=== PATIENT | male | born 1960 | race Caucasian/White ===

== ENCOUNTER 2018-08-10 07:52 | Emergency (ER) | payer BC, OTHER ==
[2018-08-10 08:50] VITALS: BP 188/104; PULSE 93; TEMP 98.2; BMI 31.9
--- NOTE | 2018-08-10 09:33 | PDOC ---
History of Present Illness - History of Present Illness Initial Comments: 08/10/18 10:31 Patient is a 58 year old male with a significant past medical history of End stage renal disease, who presents to the ED with complaints of left knee swelling that began x8 days ago. Patient reports experiencing sudden onset of left knee edema with associated left knee pain that he states is a 10/10 in intensity at night. He reports going to [facility] where he states he was given gout medication, and rex bandage for knee and discharged. Patient reports waking up the next morning where he states his knee appeared to increased in swelling and have large bruises, prompting him to come into the ED for further evaluation. Denies chest pain, Sob. Denies nausea, vomiting. Denies contact with sick individuals, out of states travelling. Denies diarrhea, constipation. Denies dysuria, hematuria. Denies any other symptoms. Allergies: Penicillin Social history: No alcohol. No illicit drugs.No smoking. Surgical history: Kidney Transplant s/p 2005. PMD: Not on staff <Madhu Eden - Last Filed: 08/10/18 10:31> - General History Source: Patient Exam Limitations: No Limitations <Chen Conner - Last Filed: 08/11/18 11:44> - General Chief Complaint: Edema Stated Complaint: L LEG NUMBNESS Time Seen by Provider: 08/10/18 09:28 Past History <Madhu Eden - Last Filed: 08/10/18 10:31> - Past Medical History COPD: No CHF: No Disorders: Yes (Bilateral Kidney transplant 2005) HTN: Yes - Immunization History Immunization Up to Date: Yes - Suicide/Smoking/Psychosocial Hx Smoking History: Never smoked Have you smoked in the past 12 months: No Information on smoking cessation initiated: No Hx Alcohol Use: No Drug/Substance Use Hx: No Substance Use Type: None <Chen Conner - Last Filed: 08/11/18 11:44> - Past Medical History Allergies/Adverse Reactions: Allergies Allergy/AdvReac Type Severity Reaction Status Date / Time No Known Allergies Allergy Verified 08/10/18 08:47 Home Medications: Ambulatory Orders Hydrocodone/Acetaminophen [Hydrocodone-Acetamin 5-325 mg] 1 each PO HS PRN #8 tablet MDD 1 08/10/18 Hydrocodone/Acetaminophen [Vicodin 5-300 mg Tablet] 1 each PO HS #8 tablet MDD 1 08/10/18 Mycophenolate Mofetil 500 mg PO HS 08/10/18 Mycophenolate Mofetil [Cellcept -] 1,000 mg PO DAILY 08/10/18 Quinapril HCl [Accupril] 40 mg PO DAILY 08/10/18 Tacrolimus 1 mg PO BID 08/10/18 Review of Systems - Review of Systems Able to Perform ROS?: Yes Comments:: 08/10/18 10:31 GENERAL/CONSTITUTIONAL: No: fever, chills, weakness, loss of appetite. HEAD, EYES, EARS, NOSE AND THROAT: No: change in vision, ear pain, discharge, sore throat, throat swelling. CARDIOVASCULAR: No: chest pain, lightheadedness, palpitations, syncope RESPIRATORY: No: cough, shortness of breath, wheezing, hemoptysis, stridor. GASTROINTESTINAL: No: nausea, vomiting, abdominal cramping, diarrhea, rectal bleeding, constipation. GENITOURINARY: No: dysuria, hematuria, frequency, urgency, flank pain. MUSCULOSKELETAL: +Left knee pain. +Left knee swelling. No: back pain, neck pain, SKIN: No: lesions, pallor, rash NEUROLOGIC: No: headache, vertigo, paresthesias, weakness ENDOCRINE: No: unexplained weight gain or loss HEMATOLOGIC/LYMPHATIC: No: anemia, easy bleeding, swelling nodes <Madhu Eden - Last Filed: 08/10/18 10:31> *Physical Exam - Vital Signs Last Vital Signs Temp Pulse Resp BP Pulse Ox 98.2 F 93 H 16 188/104 H 100 08/10/18 08:47 08/10/18 08:47 08/10/18 08:47 08/10/18 08:47 08/10/18 08:47 - Physical Exam Comments: 08/10/18 10:31 GENERAL: The patient is in no acute distress. HEAD: Normal with no signs of trauma. EYES: PERRLA, EOMI, sclera anicteric, conjunctiva clear. ENT: Ears normal, nares patent, oropharynx clear without exudates. Moist mucous membranes. NECK: Normal range of motion, supple without lymphadenopathy, JVD, or masses. LUNGS: Breath sounds equal, clear to auscultation bilaterally. No wheezes, and no crackles. HEART:Regular rate and rhythm, normal S1 and S2 without murmur, rub or gallop. ABDOMEN: Soft, nontender, normoactive bowel sounds. No guarding, no rebound. EXTREMITIES: +Medial thigh bruise to medial calf. +Sensation intact. +Bends knee. +Moves foot. +2 plus pulse in left foot. +Left upper extremity fistula. No limited ROM. Normal range of motion, no edema. No clubbing or cyanosis. No erythema, or tenderness. NEUROLOGICAL: Cranial nerves II through XII grossly intact. Normal speech. No focal neurological deficits. MUSCULOSKELETAL: Back nontender to palpation, no CVA tenderness SKIN: Warm, Dry, normal turgor, no rashes or lesions noted. <Madhu Eden - Last Filed: 08/10/18 10:31> - Vital Signs Last Vital Signs Temp Pulse Resp BP Pulse Ox 98.2 F 93 H 16 188/104 H 100 08/10/18 08:47 08/10/18 08:47 08/10/18 08:47 08/10/18 08:47 08/10/18 08:47 <Chen Conner - Last Filed: 08/11/18 11:44> Medical Decision Making - Medical Decision Making 08/10/18 10:37 Mr Doherty is a 58 yo M h/p ESRD previously on HD, now s/p living related renal transplantation (donor is his twin brother) H/o gout Pt presents to the ER with a complaint of left leg pain Pt pain began approximately 8 days ago he was seen at a clinic where he was massaged and an rex wrap was applied when he removed the rex wrap he noted bruising and continued swelling He was seen again by another practitioner who initiated treatment for gout - Prednisone and Colcys Pt states the swelling has improved Pain in his left leg has not He has severe pain at night, particularly when he is not walking around No fevers nO truma 08/10/18 10:40 On exam Left thigh is soft, no swelling Bruising noted medial thigh and medial knee No swelling noted on the knee Pt is able to flex the knee Stable to anterior and posterior drawer Sensation in tact 2+ DP 2+ pT Moves toes with no limitations DD: Resolving gout, restless leg syndrome, DVT Will give: Tylenol for pain Duplex Pt asked to follow up with PMD Pt states he has had recent labs 08/10/18 13:12 Duplex negative Arterial duplex negative 08/11/18 11:42 Clinical Impression: leg pain, initial presentation <Chen Conner - Last Filed: 08/11/18 11:44> *DC/Admit/Observation/Transfer - Attestations Scribe Attestion: 08/10/18 10:31 Documentation prepared by Madhu Eden, acting as certified medical aide for Chen Conner MD. <Madhu Eden - Last Filed: 08/10/18 10:31> - Discharge Dispostion Decision to Admit order: No <Chen Conner - Last Filed: 08/11/18 11:44> Diagnosis at time of Disposition: Leg pain Qualifiers: Laterality: left Qualified Code(s): M79.605 - Pain in left leg - Discharge Dispostion Disposition: HOME Condition at time of disposition: Stable - Prescriptions Prescriptions: Hydrocodone/Acetaminophen [Hydrocodone-Acetamin 5-325 mg] 1 each PO HS PRN #8 tablet MDD 1 PRN Reason: Severe Pain Hydrocodone/Acetaminophen [Vicodin 5-300 mg Tablet] 1 each PO HS #8 tablet MDD 1 - Referrals Referrals: ON STAFF,NOT [Primary Care Provider] - - Patient Instructions Printed Discharge Instructions: DI for Leg Pain Additional Instructions: Mr Doherty Thank you for coming in to the ER today Please take tylenol for pain If you have severe pain, please take vicodin (you can start with 1/2 tab) Please do not drive or operate heavy machinery when taking this medication Return to the ER for any other concern or complaints Follow up with your PMD within 2 days - Post Discharge Activity
[2018-08-10] MEDS ORDERED: ACETAMINOPHEN 325 MG TABLET (FP) PO ONE (09:44)
[2018-08-10] MEDS ORDERED: ACETAMINOPHEN 325 MG TABLET (FP) ONE (10:39)
== END 2018-08-10 13:18 | disposition home or self-care (01) ==
LOC: JER 07:52
DX: M79.605 Pain in left leg (principal); I10 Essential (primary) hypertension; I12.0 Hypertensive chronic kidney disease with stage 5 chronic kidney disease or end stage renal disease; N18.6 End stage renal disease
CPT/HCPCS: 93926-TC; 93971-TC; 99282-25

== ENCOUNTER 2019-05-31 03:27 | Emergency (ER) | payer BC ==
[2019-05-31 03:44] VITALS: BMI 33.4
[2019-05-31] MEDS ORDERED: ONDANSETRON 4 MG/2 ML VIAL IVPB ONE (03:56)
--- NOTE | 2019-05-31 04:04 | PDOC ---
History of Present Illness - General Chief Complaint: Chest Pain Stated Complaint: CHEST DISCOMFORT Time Seen by Provider: 05/31/19 03:37 History Source: Patient Exam Limitations: No Limitations - History of Present Illness Initial Comments: 05/31/19 03:59 59yo M with PMH of Bilateral Renal Transplant 2008 at [facility], HTN, Chronic Back Pain presenting to ED with L sided chest pain that started about 1- 2h ago. Pt states he was sleeping and woke up with a sharp pain in the L side of his chest. Pain does not radiate. Is not worsened with inspiration and not associated with sob. Denies fever, chills, cough, n/v/d, abdominal pain, tearing back pain, headache, swelling, weight gain, orthopnea, injury. Pt has not had pain like this before. He tried taking Skelexin (which he takes for back pain) but it did not help. PMD: Frie Renal: Frie PMH: see hpi PSH; see hpi Meds: Prograf, Mycophenelate, Skelexin, Allergies: nkda Social: denies Past History - Past Medical History Allergies/Adverse Reactions: Allergies Allergy/AdvReac Type Severity Reaction Status Date / Time No Known Allergies Allergy Verified 05/31/19 03:44 Home Medications: Ambulatory Orders Hydrocodone/Acetaminophen [Hydrocodone-Acetamin 5-325 mg] 1 each PO HS PRN #8 tablet MDD 1 08/10/18 Hydrocodone/Acetaminophen [Vicodin 5-300 mg Tablet] 1 each PO HS #8 tablet MDD 1 08/10/18 Mycophenolate Mofetil 500 mg PO HS 08/10/18 Mycophenolate Mofetil [Cellcept -] 1,000 mg PO DAILY 08/10/18 Quinapril HCl [Accupril] 40 mg PO DAILY 08/10/18 Tacrolimus 1 mg PO BID 08/10/18 COPD: No CHF: No Disorders: Yes (Bilateral Kidney transplant 2005) HTN: Yes - Immunization History Immunization Up to Date: Yes - Suicide/Smoking/Psychosocial Hx Smoking History: Never smoked Have you smoked in the past 12 months: No Information on smoking cessation initiated: No Hx Alcohol Use: No Drug/Substance Use Hx: No Substance Use Type: None Review of Systems - Review of Systems Constitutional: No: Chills, Fever, Malaise HEENTM: No: Symptoms Reported Respiratory: No: Symptoms reported Cardiac (ROS): Yes: Chest Pain. No: Lightheadedness, Palpitations, Syncope ABD/GI: Yes: Abdominal cramping. No: Constipated, Diarrhea, Nausea, Rectal Bleeding, Vomiting, Tarry Stools : No: Symptoms Reported Musculoskeletal: No: Symptoms Reported Integumentary: No: Symptoms Reported Neurological: No: Symptoms reported *Physical Exam - Vital Signs Last Vital Signs Temp Pulse Resp BP Pulse Ox 98.7 F 86 18 165/95 97 05/31/19 03:30 05/31/19 03:30 05/31/19 03:30 05/31/19 03:30 05/31/19 03:30 - Physical Exam General Appearance: Yes: Appropriately Dressed, Mild Distress, Obese HEENT: positive: EOMI, NOÉ, Normal ENT Inspection Neck: positive: Trachea midline, Supple. negative: Lymphadenopathy (R), Lymphadenopathy (L) Respiratory/Chest: positive: Lungs Clear, Normal Breath Sounds. negative: Decreased Breath Sounds, Crackles, Wheezing Cardiovascular: positive: Regular Rhythm, Regular Rate, S1, S2. negative: Edema , JVD, Murmur Vascular Pulses: Dorsalis-Pedis (R): 2+, Doralis-Pedis (L): 2+ Gastrointestinal/Abdominal: positive: Normal Bowel Sounds, Tender (slight epigastric tenderness), Soft. negative: Distended, Guarding, Rebound Musculoskeletal: negative: CVA Tenderness Extremity: positive: Normal Capillary Refill, Pelvis Stable. negative: Tender, Pedal Edema, Swelling Integumentary: positive: Normal Color, Dry, Warm Neurologic: positive: rn ed II-XII NML intact, Fully Oriented, Alert, Normal Mood/ Affect, Normal Response, Motor Strength / ED Treatment Course - LABORATORY CBC & Chemistry Diagram: 05/31/19 04:15 05/31/19 04:15 - RADIOLOGY Radiology Studies Ordered: Category Date Time Status CHEST X-RAY PORTABLE* [RAD] Stat Radiology 05/31/19 03:50 Ordered Medical Decision Making - Medical Decision Making 05/31/19 04:02 59yo M with PMH of Bilateral Renal Transplant 2008 at [facility], HTN, Chronic Back Pain presenting to ED with L sided chest pain that started about 1- 2h ago. Pt states he was sleeping and woke up with a sharp pain in the L side of his chest. Pain does not radiate. Is not worsened with inspiration and not associated with sob. Denies fever, chills, cough, n/v/d, abdominal pain, tearing back pain, headache, swelling, weight gain, orthopnea, injury. Pt has not had pain like this before. He tried taking Skelexin (which he takes for back pain) but it did not help. Vitals: wnl PE: benign, no abdominal tenderness, no chest wall tenderness, lungs cta, rrr , s1,s2. L forearm avf with palpable thrill Ddx includes but not limited to acs, pancreatitis, pna, ptx, pe, mass/malignancy , electrolyte disturbance, effusion -cardiac workup -ekg, cxr pt started feeling nauseous and throwing up. endorsed abdominal pain prior to chest pain. giving zofran and adding lipase. gi 05/31/19 05:03 ekg: nsr at 77bmp. pr 152, qtc 430. LVH. q waves in I, v1. concave st segment in V1. complaining of pain and states he cannot take ASA. will give ofirmev. 05/31/19 07:05 labs significant for lipase 14k, amylase 600s. adding triglycerides. unable to perform pocus due to machine not working. ordered ctap giving 1L fluids. ctap: Peripancreatic fat stranding, consistent with acute pancreatitis. No organized pseudocyst. Atrophic eek kidneys containing cystic foci. Unremarkable transplant kidneys in left and right iliac fossae. Unremarkable gallbladder. Small hepatic cyst or hemangioma. No bowel obstruction, colitis, free fluid or free air. Normal appendix. pain adequately controlled with tylenol. adding maintenance fluids (LR) and us ruq to check for stone. making npo in ed. endorsed to admitting team. *DC/Admit/Observation/Transfer Diagnosis at time of Disposition: Pancreatitis Qualifiers: Chronicity: acute Pancreatitis type: unspecified pancreatitis type Acute pancreatitis complication: no infection or necrosis Qualified Code(s): K85.90 - Acute pancreatitis without necrosis or infection, unspecified - Discharge Dispostion Condition at time of disposition: Improved - Referrals - Patient Instructions - Post Discharge Activity
[2019-05-31] MEDS ORDERED: ONDANSETRON 4 MG/2 ML VIAL ONE ×2 (04:25→12:53)
[2019-05-31 04:37] LABS: BASO % 0.6 % (0-2.0); EOS % 0.6 % (0-4.5); HEMOGLOBIN 15.2 GM/dL (11.7-16.9); LYMPH % 13.4 % (8-40); MCH 29.5 pg (25.7-33.7); MCHC 34.5 g/dl (32.0-35.9); MEAN CELL VOLUME 85.5 fl (80-96); MEAN PLT VOLUME 6.9 fl (7.5-11.1); MONO % 10.1 % (3.8-10.2); NEUT % 75.3 % (42.8-82.8); PLATELET COUNT 232 K/MM3 (134-434); RBC 5.15 M/mm3 (4.00-5.60); RDW 13.3 % (11.9-15.9); WHITE BLOOD COUNT 12.2 K/mm3 (4.0-10.0)
[2019-05-31 04:41] LABS: INR 1.14 (0.83-1.09); PROTHROMBIN TIME (PATIENT) 13.5 SEC (9.7-13.0)
[2019-05-31 04:54] LABS: ALBUMIN 4.1 g/dl (3.4-5.0); BILIRUBIN,TOTAL 1.2 mg/dL (0.2-1); BLOOD UREA NITROGEN 15.5 mg/dL (7-18); CALCIUM 9.3 mg/dL (8.5-10.1); CREATININE 1.1 mg/dL (0.55-1.3); POTASSIUM 3.4 mmol/L (3.5-5.1); TOT PROT 7.4 g/dl (6.4-8.2)
[2019-05-31] MEDS ORDERED: ACETAMINOPHEN INJECTION 100 ML IVPB ONE (05:05)
[2019-05-31] MEDS ORDERED: ACETAMINOPHEN 1000 MG/100 ML VIAL (NON FORMULARY) IVPB ONE (05:06)
[2019-05-31] MEDS ORDERED: SODIUM CHLORIDE 1,000 ML IV STA (05:14)
[2019-05-31 05:31] LABS: AMYLASE 617 U/L (25-115)
--- NOTE | 2019-05-31 06:08 | PDOC ---
Documentation entered by Maria Lo SCRIBE, acting as scribe for Sonia Chaudhary DO. Sonia Chaudhary DO: This documentation has been prepared by the Wally wilcox Adrianna, SCRIBE, under my direction and personally reviewed by me in its entirety. I confirm that the documentation accurately reflects all work, treatment, procedures, and medical decision making performed by me. Attending Attestation - Resident Resident Name: Hui Curry - ED Attending Attestation I have performed the following: I have examined & evaluated the patient, The case was reviewed & discussed with the resident, I agree w/resident's findings & plan - HPI HPI: The patient is a 59 year old male, with a significant PMH of bilateral renal transplant, HTN, and chronic back pain, who presents to the ED for evaluation of chest pain for a couple of hours. Patient endorses left sided chest pain that is sudden onset, localized, sharp, and unaffected by taking a deep breath. Denies history of similar symptoms. Allergies: NKA, NKDA Surgical History: Bilateral renal transplant Social History: Denies EtOH, tobacco, or illicit drug use PCP: Dr. Duarte - Physicial Exam PE: Agree with resident exam. - Medical Decision Making 05/31/19 06:06 59-year-old male with history of end-stage renal disease complaining of epigastric pain radiating into the chest Labs suggest a markedly elevated lipase level consistent with acute pancreatitis Plan for admission to hospitalist service Patient will need right upper quadrant ultrasound/CT scan for further evaluation as well
[2019-05-31] MEDS ORDERED: LACTATED RINGERS SOLUTION 1,000 ML/1,000 ML INFUS.BAG IV SCH ×2 (07:00→12:30)
[2019-05-31] MEDS ORDERED: morphine CARPU-JECT 2 MG/1 ML DISP.SYRIN IM ONE (08:41)
[2019-05-31] MEDS ORDERED: MORPHINE SULFATE 2 MG/ML VIAL ONE ×2 (08:49→12:33)
[2019-05-31] MEDS ORDERED: MORPHINE SULFATE 2 MG/ML VIAL IVPUSH PRN (08:52)
[2019-05-31] MEDS ORDERED: HEPARIN NA (PORCINE) 5,000 UNITS/ML 1ML VIAL SQ SCH (10:00)
[2019-05-31] MEDS ORDERED: morphine CARPU-JECT 2 MG/1 ML DISP.SYRIN IVPUSH ONE (11:20)
--- NOTE | 2019-05-31 11:22 | PDOC ---
*Physical Exam - Vital Signs Last Vital Signs Temp Pulse Resp BP Pulse Ox 97.7 F 78 18 172/80 H 95 05/31/19 06:58 05/31/19 08:40 05/31/19 08:40 05/31/19 08:40 05/31/19 08:40 - Physical Exam Comments: 05/31/19 11:21 I was contacted by Dr. Haji of [facility] regarding patient's admission and requested to initiate transferred to [facility] for specialty care by the patient's special procedures tech. I discussed the case with Dr. Jimmie Pacheco of nephrology at [facility] who accepted the patient for admission. I contacted the transfer center to initiate the transfer of patient [address] [facility], [facility]. 05/31/19 12:28 pts total fluid in 2100ml. 05/31/19 13:02 atient receiving additional IV fluids. Accepted for transfer to [facility] ER. We'll administer K Dur. ED Treatment Course - LABORATORY CBC & Chemistry Diagram: 05/31/19 04:15 05/31/19 04:15 - ADDITIONAL ORDERS Additional order review: Laboratory Results 05/31/19 05/31/19 05/31/19 04:45 04:15 04:15 PT with INR 13.50 H INR 1.14 H Sodium Potassium Chloride Carbon Dioxide Anion Gap BUN Creatinine Est GFR (CKD-EPI)AfAm Est GFR (CKD-EPI)NonAf Random Glucose Calcium Magnesium 1.8 Total Bilirubin AST ALT Alkaline Phosphatase Creatine Kinase 167 Creatine Kinase Index 0.8 CK-MB (CK-2) 1.4 Troponin I < 0.02 Total Protein Albumin Triglycerides Total Amylase 617 H Lipase 05/31/19 05/31/19 04:15 04:15 PT with INR INR Sodium 143 Potassium 3.4 L Chloride 107 Carbon Dioxide 28 Anion Gap 8 BUN 15.5 Creatinine 1.1 Est GFR (CKD-EPI)AfAm 83.53 Est GFR (CKD-EPI)NonAf 72.07 Random Glucose 109 H Calcium 9.3 Magnesium Total Bilirubin 1.2 H AST 21 ALT 56 Alkaline Phosphatase 73 Creatine Kinase Creatine Kinase Index CK-MB (CK-2) Troponin I Total Protein 7.4 Albumin 4.1 Triglycerides 68 Total Amylase Cancelled Lipase 44776 H 05/31/19 04:15 RBC 5.15 MCV 85.5 MCHC 34.5 RDW 13.3 MPV 6.9 L Neutrophils % 75.3 Lymphocytes % 13.4 Monocytes % 10.1 Eosinophils % 0.6 Basophils % 0.6 - Medications Given in the ED: ED Medications Discontinued Medications Generic Name Dose Route Start Last Admin Trade Name Freq PRN Reason Stop Dose Admin Acetaminophen 1,000 mg 05/31/19 05:06 05/31/19 05:09 Ofirmev Injection - IVPB 05/31/19 05:07 1,000 mg ONCE ONE Administration Sodium Chloride 1,000 mls @ 1,000 mls/hr 05/31/19 05:14 05/31/19 05:18 Normal Saline - IV 05/31/19 06:13 1,000 mls/hr ASDIR STA Administration Morphine Sulfate 2 mg 05/31/19 08:41 05/31/19 09:01 Morphine Injection - IM 05/31/19 08:42 Not Given ONCE ONE Morphine Sulfate 2 mg 05/31/19 08:52 05/31/19 09:01 Morphine Sulfate IVPUSH 2 mg Q6H PRN Administration PAIN LEVEL 6-10 Ondansetron HCl 4 mg 05/31/19 03:56 05/31/19 04:36 Zofran Injection IVPB 05/31/19 03:57 4 mg ONCE ONE Administration *DC/Admit/Observation/Transfer Diagnosis at time of Disposition: Pancreatitis Qualifiers: Chronicity: acute Pancreatitis type: unspecified pancreatitis type Acute pancreatitis complication: no infection or necrosis Qualified Code(s): K85.90 - Acute pancreatitis without necrosis or infection, unspecified - Discharge Dispostion Disposition: TRANSFER ACUTE CARE/OTHER HOSP Condition at time of disposition: Fair - Referrals - Patient Instructions - Post Discharge Activity - Transfer to Acute Care Facility Receiving Facility: [facility] Accepting Physician:: dr. jimmie pacheco/Dr. Johnson Transfer comment: 05/31/19 13:03 pt accepted for transfer to [facility]
[2019-05-31] MEDS ORDERED: ONDANSETRON 4 MG/2 ML VIAL IVPUSH ONE (12:41)
[2019-05-31] MEDS ORDERED: LACTATED RINGERS SOLUTION 1,000 ML/1,000 ML INFUS.BAG IV STA (12:42)
[2019-05-31] MEDS ORDERED: POTASSIUM CHLORIDE TABS 20 MEQ TABLET.ER (FP) PO ONE ×2 (13:01→13:13)
[2019-05-31] MEDS ORDERED: QUINAPRIL HCL 40 MG TABLET (FP) PO ONE (13:25)
[2019-05-31] MEDS ORDERED: QUINAPRIL HCL 10 MG TABLET (FP) ONE (13:25)
[2019-05-31 14:26] VITALS: BP 196/113; PULSE 88; TEMP 98.3
[2019-05-31] MEDS ORDERED: morphine CARPU-JECT 4 MG/1 ML DISP.SYRIN IVPUSH ONE (14:32)
--- NOTE | 2019-05-31 14:32 | EKG ---
Test Reason : Blood Pressure : / mmHG Vent. Rate : 077 BPM Atrial Rate : 077 BPM P-R Int : 152 ms QRS Dur : 092 ms QT Int : 380 ms P-R-T Axes : 045 012 049 degrees QTc Int : 430 ms NORMAL SINUS RHYTHM POSSIBLE LEFT ATRIAL ENLARGEMENT LEFT VENTRICULAR HYPERTROPHY ABNORMAL ECG NO PREVIOUS ECGS AVAILABLE Confirmed by DALY PANG, LUIS DANIEL ([id number]) on 05/31/2019 2:32:10 PM Referred By: Confirmed By:LUIS DANIEL KAUFFMAN MD
[2019-05-31] MEDS ORDERED: morphine SULFATE 4 MG/ML VIAL ONE (14:33)
== END 2019-05-31 14:41 | disposition short-term general hospital (02) ==
LOC: JER 03:27 → JERBED 05:18 → UNDOADMIN 05:18 → JER 14:41
PROC: 3E033NZ Introduction of Analgesics, Hypnotics, Sedatives into Peripheral Vein, Percutaneous Approach (ICD-10-PCS; principal; 2019-05-31)
PROC: 3E0337Z Introduction of Electrolytic and Water Balance Substance into Peripheral Vein, Percutaneous Approach (ICD-10-PCS; 2019-05-31)
PROC: 3E033GC Introduction of Other Therapeutic Substance into Peripheral Vein, Percutaneous Approach (ICD-10-PCS; 2019-05-31)
DX: K85.90 Acute pancreatitis without necrosis or infection, unspecified (principal); Z94.0 Kidney transplant status; I10 Essential (primary) hypertension; G89.29 Other chronic pain
CPT/HCPCS: 36415; 71045-TC-FY; 74176-TC; 76705-TC; 80053; 82150; 82550; 82553; 83690; 83735; 84478; 84484; 85025; 85610; 93005; 93010; 99283-25; J0131; J7030